=== PATIENT | female | born 1945 | race Caucasian/White ===

== ENCOUNTER → 2018-02-26 | Outpatient (CLI) | payer OTHER | LOC: BMCIMAGING 11:19 | PROVIDERS: ATTEND Orthopaedic Surgery Hand Surgery | DX: M18.12 Unilateral primary osteoarthritis of first carpometacarpal joint, left hand (principal); M24.841 Other specific joint derangements of right hand, not elsewhere classified; M24.842 Other specific joint derangements of left hand, not elsewhere classified; M24.811 Other specific joint derangements of right shoulder, not elsewhere classified; M23.300 Other meniscus derangements, unspecified lateral meniscus, right knee ==

== ENCOUNTER → 2019-01-22 | Outpatient (CLI) | payer OTHER | LOC: BMCIMAGING 09:29 | PROVIDERS: ATTEND Family Medicine | DX: M79.89 Other specified soft tissue disorders (principal) ==